=== PATIENT | female | born 1960 | race Caucasian/White ===

== ENCOUNTER 2019-05-16 07:15 | Emergency (ER) | payer OTHER ==
[~2019-05-16] VITALS: Ht 165.1 cm; Wt 81.7 kg
[~2019-05-16 07:15] MED LIST: BUTASPCAFT; CYCL10; CYCL10 PO; DULO30; FLUO10; IBUP600; LISI5; METH5; OMEP20ER; OXYC5; OXYC5 PO; PENVK500 PO; PROM25 PO; RANI150; SENN187; TEGA6
[2019-05-16] MEDS ORDERED: LISI20 PO (07:35)
[2019-05-16] MEDS ORDERED: DILT120ERA PO (07:35)
[2019-05-16 07:42] LABS: BASOPHILS ABSOLUTE AUTO 0.05 K/mm3 (0.00-0.23); BASOPHILS PERCENT AUTO 1 % (0-2); EOSINOPHILS ABSOLUTE AUTO 0.39 K/mm3 (0.00-0.68); EOSINOPHILS PERCENT AUTO 5 % (0-6); Hematocrit 41.7 % (33.0-51.0); Hemoglobin 13.9 g/dL (11.5-16.0); IMMATURE GRAN ABSOLUTE AUTO 0.03 K/mm3 (0.00-0.10); IMMATURE GRAN PERCENT AUTO 0 % (0-1); LYMPHOCYTES PERCENT AUTO 17 % (21-46); MONOCYTES ABSOLUTE AUTO 0.45 K/mm3 (0.16-1.47); MONOCYTES PERCENT AUTO 5 % (4-13); Mean Corpuscular HGB Conc 33.3 g/dL (31.5-36.5); Mean Corpuscular Volume 90 fL (80-100); Mean Platelet Volume 11.3 fL (9.1-12.4); NEUTROPHILS ABSOLUTE AUTO 6.14 K/mm3 (1.96-9.15); NEUTROPHILS PERCENT AUTO 73 % (41-73); Platelet Count 250 K/mm3 (150-400); RDW Coefficient Variation 12.5 % (11.7-14.2); RDW Standard Deviation 41.4 fL (35.1-46.3); Red Blood Cell Count 4.63 M/mm3 (3.80-5.20); White Blood Cell Count 8.46 K/mm3 (4.00-11.30)
[2019-05-16 08:09] LABS: Alanine Aminotransfer (ALT/SGP 24 U/L (12-78); Albumin, Blood 3.8 g/dL (3.4-5.0); Albumin/Globulin Ratio 1.1 (0.8-1.8); Alk Phos 80 U/L (50-136); Anion Gap 3 mmol/L (6-16); Aspartate Aminotrans (AST/SGOT 17 U/L (12-37); Bilirubin, Total 0.3 mg/dL (0.1-1.0); Blood Urea Nitrogen 17 mg/dL (8-24); Bun/Creatinine Ratio 19.7 (12.0-20.0); CO2, Blood 28 mmol/L (21-32); Calcium, Blood 8.8 mg/dL (8.5-10.1); Chloride, Blood 111 mmol/L (98-108); Creatinine, Blood 0.87 mg/dL (0.40-1.00); Globulin, Blood 3.4 g/dL (2.2-4.0); Glomerular Filtration Rate >60 (60-); Glucose, Blood 104 mg/dL (70-99); Potassium, Blood 3.9 mmol/L (3.5-5.5); Sodium, Blood 142 mmol/L (136-145); Total Protein, Blood 7.2 g/dL (6.4-8.2)
[2019-05-16] MEDS ORDERED: MOTION RELIEF25 MG PO (09:33)
== END 2019-05-16 09:54 | disposition home or self-care (01) ==
LOC: ER 07:15
PROVIDERS: Emergency Medicine
DX: R42 Dizziness and giddiness (principal); I10 Essential (primary) hypertension; Z87.891 Personal history of nicotine dependence; Z88.8 Allergy status to other drugs, medicaments and biological substances; Z79.899 Other long term (current) drug therapy
CPT/HCPCS: 36415; 80053; 84484; 85025; 93005; 93010; 96374; 99284-25; J2550

== ENCOUNTER → 2022-06-13 | Outpatient (CLI) | payer OTHER ==
[~2022-06-13] MED LIST changes: +DILT120ERA PO; +LISI20 PO; +MOTION RELIEF25 MG PO
[2022-06-13 16:08] LABS: Creatinine Urine 91.1 mg/dL (27.00-270.00); Protein, Urine Quantitative 21.7 mg/dL (0.0-11.9)
== END | disposition home or self-care (01) ==
LOC: LAB 13:59 → LAB SHORT 13:59 → LAB FUT 06-08 13:45
PROVIDERS: Internal Medicine Nephrology
DX: N18.30 Chronic kidney disease, stage 3 unspecified (principal); D63.1 Anemia in chronic kidney disease; N25.81 Secondary hyperparathyroidism of renal origin; E78.00 Pure hypercholesterolemia, unspecified; R76.9 Abnormal immunological finding in serum, unspecified; R94.5 Abnormal results of liver function studies; G60.9 Hereditary and idiopathic neuropathy, unspecified
CPT/HCPCS: 81050; 82043; 82570; 84156

== ENCOUNTER 2022-08-09 15:38 | Emergency (ER) | payer OTHER ==
[~2022-08-09] VITALS: Ht 167.6 cm; Wt 81.7 kg
[2022-08-09 17:14] LABS: BASOPHILS ABSOLUTE AUTO 0.06 K/mm3 (0.00-0.23); BASOPHILS PERCENT AUTO 1 % (0-2); EOSINOPHILS ABSOLUTE AUTO 0.33 K/mm3 (0.00-0.68); EOSINOPHILS PERCENT AUTO 5 % (0-6); Hemoglobin 13.3 g/dL (11.5-16.0); IMMATURE GRAN ABSOLUTE AUTO 0.02 K/mm3 (0.00-0.10); IMMATURE GRAN PERCENT AUTO 0 % (0-1); LYMPHOCYTES ABSOLUTE AUTO 2.69 K/mm3 (0.84-5.20); LYMPHOCYTES PERCENT AUTO 38 % (21-46); MONOCYTES ABSOLUTE AUTO 0.42 K/mm3 (0.16-1.47); MONOCYTES PERCENT AUTO 6 % (4-13); Mean Corpuscular HGB 29.8 pg (26.0-34.0); Mean Corpuscular HGB Conc 33.3 g/dL (31.5-36.5); Mean Corpuscular Volume 90 fL (80-100); Mean Platelet Volume 11.4 fL (9.1-12.4); NEUTROPHILS ABSOLUTE AUTO 3.48 K/mm3 (1.96-9.15); NEUTROPHILS PERCENT AUTO 50 % (41-73); Platelet Count 220 K/mm3 (150-400); RDW Coefficient Variation 12.4 % (11.7-14.2); RDW Standard Deviation 40.8 fL (35.1-46.3); Red Blood Cell Count 4.47 M/mm3 (3.80-5.20)
[2022-08-09] MEDS ORDERED: TAMSULOSIN HCL0.4 MG PO (17:26)
[2022-08-09] MEDS ORDERED: CATAPRES0.1 MG PO (17:26)
[2022-08-09 17:42] LABS: Albumin, Blood 3.8 g/dL (3.4-5.0); Albumin/Globulin Ratio 1.2 (0.8-1.8); Bilirubin, Total 0.4 mg/dL (0.1-1.0); Bun/Creatinine Ratio 15.9 (12.0-20.0); Calcium, Blood 8.9 mg/dL (8.5-10.1); Creatinine, Blood 0.94 mg/dL (0.40-1.00); Globulin, Blood 3.1 g/dL (2.2-4.0); Total Protein, Blood 6.9 g/dL (6.4-8.2)
[2022-08-09 18:34] LABS: Influenza A, PCR NEGATIVE (NEGATIVE); Influenza B, PCR NEGATIVE (NEGATIVE); Resp Syncytial Virus, PCR NEGATIVE (NEGATIVE); SARS-Cov-2 (COVID-19) PCR, MMC NEGATIVE (NEGATIVE)
== END 2022-08-09 18:58 | disposition home or self-care (01) ==
LOC: ER 15:38
PROVIDERS: Emergency Medicine
DX: R07.89 Other chest pain (principal); I25.10 Atherosclerotic heart disease of native coronary artery without angina pectoris; Z87.891 Personal history of nicotine dependence; Z20.822 Contact with and (suspected) exposure to COVID-19
CPT/HCPCS: 0241U; 71045; 80053; 83690; 83880; 84484; 85025; 93005; 93010; 99285-25

== ENCOUNTER 2023-05-02 05:51 | Emergency (ER) | payer OTHER ==
[~2023-05-02] VITALS: Ht 165.1 cm; Wt 81.7 kg
[~2023-05-02 05:51] MED LIST changes: +CATAPRES0.1 MG PO; +TAMSULOSIN HCL0.4 MG PO
[2023-05-02 07:58] LABS: BASOPHILS ABSOLUTE AUTO 0.05 K/mm3 (0.00-0.23); BASOPHILS PERCENT AUTO 1 % (0-2); EOSINOPHILS PERCENT AUTO 2 % (0-6); Hemoglobin 16.2 g/dL (11.5-16.0); IMMATURE GRAN ABSOLUTE AUTO 0.01 K/mm3 (0.00-0.10); IMMATURE GRAN PERCENT AUTO 0 % (0-1); LYMPHOCYTES ABSOLUTE AUTO 1.86 K/mm3 (0.84-5.20); LYMPHOCYTES PERCENT AUTO 23 % (21-46); MONOCYTES PERCENT AUTO 6 % (4-13); Mean Corpuscular HGB 30.1 pg (26.0-34.0); Mean Corpuscular HGB Conc 34.5 g/dL (31.5-36.5); Mean Corpuscular Volume 87 fL (80-100); Mean Platelet Volume 11.7 fL (9.1-12.4); NEUTROPHILS ABSOLUTE AUTO 5.64 K/mm3 (1.96-9.15); NEUTROPHILS PERCENT AUTO 68 % (41-73); Platelet Count 247 K/mm3 (150-400); RDW Coefficient Variation 12.4 % (11.7-14.2); RDW Standard Deviation 39.6 fL (35.1-46.3); Red Blood Cell Count 5.38 M/mm3 (3.80-5.20); White Blood Cell Count 8.26 K/mm3 (4.00-11.30)
[2023-05-02 08:21] LABS: Albumin/Globulin Ratio 1.2 (0.8-1.8); Bilirubin, Total 0.5 mg/dL (0.1-1.0); Bun/Creatinine Ratio 13.5 (12.0-20.0); Calcium, Blood 9.3 mg/dL (8.5-10.1); Creatinine, Blood 0.89 mg/dL (0.40-1.00); Globulin, Blood 3.3 g/dL (2.2-4.0); Potassium, Blood 3.8 mmol/L (3.5-5.5); Total Protein, Blood 7.3 g/dL (6.4-8.2)
[2023-05-02] MEDS ORDERED: CATAPRES0.1 MG PO (10:00)
[2023-05-02 10:30] VITALS: BP 182/81
== END 2023-05-02 10:40 | disposition home or self-care (01) ==
LOC: ER 05:51
PROVIDERS: Emergency Medicine
DX: I16.0 Hypertensive urgency (principal); R07.89 Other chest pain; R51.9 Headache, unspecified; I10 Essential (primary) hypertension; Z87.891 Personal history of nicotine dependence; Z79.899 Other long term (current) drug therapy; Z88.8 Allergy status to other drugs, medicaments and biological substances
CPT/HCPCS: 71045; 80053; 84484; 85025; 93005; 93010; 96374; 99285-25; A9270; J2405

== ENCOUNTER 2024-06-18 14:28 | Observation (INO) | payer OTHER ==
[~2024-06-18] VITALS: Ht 165.1 cm; Wt 84.5 kg
[~2024-06-18 14:28] MED LIST changes: +OXAYDO5 M1 PO
[2024-06-18 15:19] LABS: BASOPHILS ABSOLUTE AUTO 0.03 K/mm3 (0.00-0.23); BASOPHILS PERCENT AUTO 1 % (0-2); EOSINOPHILS ABSOLUTE AUTO 0.17 K/mm3 (0.00-0.68); EOSINOPHILS PERCENT AUTO 3 % (0-6); Hematocrit 41.1 % (33.0-51.0); Hemoglobin 14.1 g/dL (11.5-16.0); IMMATURE GRAN ABSOLUTE AUTO 0.01 K/mm3 (0.00-0.10); IMMATURE GRAN PERCENT AUTO 0 % (0-1); LYMPHOCYTES ABSOLUTE AUTO 2.34 K/mm3 (0.84-5.20); LYMPHOCYTES PERCENT AUTO 45 % (21-46); MONOCYTES ABSOLUTE AUTO 0.46 K/mm3 (0.16-1.47); MONOCYTES PERCENT AUTO 9 % (4-13); Mean Corpuscular HGB 30.2 pg (26.0-34.0); Mean Corpuscular HGB Conc 34.3 g/dL (31.5-36.5); Mean Corpuscular Volume 88 fL (80-100); Mean Platelet Volume 11.3 fL (9.1-12.4); NEUTROPHILS PERCENT AUTO 42 % (41-73); Platelet Count 215 K/mm3 (150-400); RDW Coefficient Variation 12.4 % (11.7-14.2); RDW Standard Deviation 39.3 fL (35.1-46.3); Red Blood Cell Count 4.67 M/mm3 (3.80-5.20); White Blood Cell Count 5.21 K/mm3 (4.00-11.30)
[2024-06-18] MEDS ORDERED: DOXA4 PO (15:31)
[2024-06-18] MEDS ORDERED: CYCL10 PO (15:31)
[2024-06-18] MEDS ORDERED: DILT60 PO (15:31)
[2024-06-18] MEDS ORDERED: Aspir 8181 MG PO (15:32)
[2024-06-18] MEDS ORDERED: SENN187 PO (15:32)
[2024-06-18] MEDS ORDERED: LACT PO (15:32)
[2024-06-18] MEDS ORDERED: ROPI.25 PO (15:32)
[2024-06-18 15:44] LABS: Albumin, Blood 3.6 g/dL (3.4-5.0); Bilirubin, Total 0.3 mg/dL (0.1-1.0); Bun/Creatinine Ratio 18.7 (12.0-20.0); Calcium, Blood 8.7 mg/dL (8.5-10.1); Creatinine, Blood 0.96 mg/dL (0.40-1.00); Globulin, Blood 3.7 g/dL (2.2-4.0); Potassium, Blood 3.8 mmol/L (3.5-5.5); Total Protein, Blood 7.3 g/dL (6.4-8.2)
[2024-06-18] MEDS ORDERED: Aspirin 325 MG Tab PO ONE (15:55)
[2024-06-18 16:28] LABS: CHOL/HDL RATIO 3.5; Cholesterol 220 mg/dL (50-200); HDL Cholesterol 62 mg/dL (>39); LDL/HDL RATIO 2.3; Low Density Lipoprotein Chol 143 mg/dL (0-110); Triglycerides 77 mg/dL (30-160); Very Low Density Lipoprot Chol 15 mg/dL (6-32)
[2024-06-18] MEDS ORDERED: FLU VACC TS2024-25(6MOS UP)/PF 45 MCG/0.5 ML SYRINGE IM ONE (20:00)
--- NOTE | 2024-06-18 20:09 | NUR ---
NEW ADMIT. PATIENT ADMITTED TO ROOM 325 FROM THE ER FOR CHEST PAIN. PATIENT ARRIVED TO ROOM VIA WHEELCHAIR AND 1P TRANSFER. PATIENT IS ABLE TO SELF AMBULATE TO BED WITH STEADY GAIT. PATIENTS SON AT SIDE WHEN ARRIVED TO ROOM-SON TOOK PERSONAL BELONGINGS HOME. THIS RN TO ASSUME PATIENT CARE.
[2024-06-18] MEDS ORDERED: NIACIN PO (20:21)
[2024-06-18 20:47] VITALS: BP 176/79
[2024-06-18] MEDS ORDERED: rOPINIRole HCl 0.25 MG Tab PO SCH (21:00)
[2024-06-18] MEDS ORDERED: Doxazosin Mesylate 2 MG Tab PO SCH (21:00)
[2024-06-18] MEDS ORDERED: NS 1,000 ML IV SCH (22:00)
--- NOTE | 2024-06-18 22:40 | NUR ---
DR.ANDREW SUTTON CONTACTED FOR CARDIOLOGY CONSULT. DR. SUTTON REPLIED WITH "THEY USUALLY JUST CALL IN THE MORNING". WILL REPORT TO DAYSHIFT NURSE TO CONTACT CARDIOLOGY FOR CONSULT.
[2024-06-19] VITALS (12 sets, daily range): BP systolic 137–193; BP diastolic 55–86
--- NOTE | 2024-06-19 05:21 | NUR ---
SHIFT SUMMARY. PATIENT IS A&OX4. PATIENT IS ABLE TO AMBULATE INDEPENDENTLY IN ROOM TO THE BATHROOM-PATIENT EDUCATED ON CALLING IF SHE HAS CHEST PAIN AND/OR IF SHE EXPERIENCES CHEST PAIN WHEN UP TO BATHROOM-PATIENT AGREEABLE. PATIENT CALLS APPROPRIATELY AND IS ABLE TO MAKE HER NEEDS KNOWN. TELE IS ON WITH LEADS IN PLACE-NO NOTED EVENTS THIS SHIFT. PATIENT IS ON A HEART HEALTHY DIET. BED IS LOCKED IN THE LOWEST POSITION WITH CALL LIGHT IN REACH. CARE IS ONGOING.
[2024-06-19] MEDS ORDERED: Spironolactone 25 MG Tab PO SCH (09:00)
[2024-06-19] MEDS ORDERED: Atorvastatin 40 MG Tab PO SCH ×2 (09:00)
[2024-06-19] MEDS ORDERED: Cyclobenzaprine HCl 10 MG Tab PO SCH (09:00)
[2024-06-19] MEDS ORDERED: Enoxaparin 40 MG/0.4 ML SYR SC SCH (09:00)
[2024-06-19] MEDS ORDERED: Aspirin 81 MG Chew PO SCH (09:00)
[2024-06-19] MEDS ORDERED: Lisinopril 20 MG Tab PO SCH (09:00)
[2024-06-19] MEDS ORDERED: Diltiazem HCl 300 MG Cap.CD PO SCH (09:00)
[2024-06-19] MEDS ORDERED: Sennosides 8.6 MG Tab PO SCH (09:00)
[2024-06-19] MEDS ORDERED: dilTIAZem HCL 60 MG TAB PO SCH (09:00)
[2024-06-19] MEDS ORDERED: Heparin Sodium 1000 Units/ML 10ML MDV ONE (12:59)
[2024-06-19] MEDS ORDERED: NiCARdipine HCL 1,000 MCG/5 ML SYR ONE (13:00)
[2024-06-19] MEDS ORDERED: NS 250 ML IV ONE (13:00)
[2024-06-19] MEDS ORDERED: Nitroglycerin 2 MG/20 ML BTL ONE (13:00)
[2024-06-19] MEDS ORDERED: NS 1,000 ML IV ONE ×2 (13:00→13:41)
[2024-06-19] MEDS ORDERED: Midazolam HCl 1MG / ML 2ML Vial ONE (13:41)
[2024-06-19] MEDS ORDERED: FentaNYL Citrate 50 MCG/ML 2 ML Injection ONE (13:41)
[2024-06-19] MEDS ORDERED: NS 1,000 ML IV SCH (14:30)
--- NOTE | 2024-06-19 15:12 | NUR ---
dr owen at bedside discussing procedure and plan of care.
--- NOTE | 2024-06-19 15:26 | NUR ---
2cc removed from tr band. site soft and non-tender per pt. no bleeding noted.
--- NOTE | 2024-06-19 16:20 | NUR ---
ARRIVAL FROM PAID SEARCH MARKETING STRATEGIST PT ARRIVED TO PCU FROM PAID SEARCH MARKETING STRATEGIST AROUND [id number]. PT BROUGHT BY WHEELCHAIR AND TANSFERED FROM CHAIR TO BED INDEPENDENTLY. RIGHT RADIAL SITE, TR BAND IN PLACE, NO BLEEDING, HEMATOMA OR BRUSING NOTED, ARM BOARD IN PLACE. PAID SEARCH MARKETING STRATEGIST RN STARTING DEFLATING TR BAND IN RECOVERY ROOM, WILL CONTINUE TO MONITOR SITE AND DELFLATE AIR. HR IN THE 60'S, SBP STABLE, DENIES CP/PRESSURE, NUMB/TINGLING. O2 >92% ON RA. WILL CONTINUE TO MONITOR PT.
[2024-06-19] MEDS ORDERED: ATOR40TA PO (18:11)
[2024-06-19] MEDS ORDERED: Aldactone25 MG PO (18:12)
[2024-06-19] MEDS ORDERED: PANT40 PO (18:12)
--- NOTE | 2024-06-19 18:47 | NUR ---
DISCHARGE SUMMARY NO ACUTE CHANGES T/O SHIFT. R PIV REMOVED, PRESSURE APPLIED, WRAPPED IN COBAN AND GUAZE. DISCHARGE INSTRUCTIONS REVIEWED WITH PT. RIGHT RADIAL SITE COVERD WITH CLEAR TEGADERM, SITE INTACT, NO BLEEDING, BRUISING, OR HEMATOMA NOTED. PT LEFT VIA WHEELCHAIR AT 1845 WITH RN.
[2024-06-20] MEDS ORDERED: Atorvastatin 40 MG Tab PO SCH (21:00)
== END 2024-06-19 19:07 | disposition home or self-care (01) ==
LOC: ER 14:28 → MEDS 14:29 → PCU 06-19 14:35
PROVIDERS: Emergency Medicine; ADMIT Family Medicine
DX: I25.110 Atherosclerotic heart disease of native coronary artery with unstable angina pectoris (principal); I10 Essential (primary) hypertension; E78.5 Hyperlipidemia, unspecified; G25.81 Restless legs syndrome; Z79.82 Long term (current) use of aspirin; Z79.899 Other long term (current) drug therapy; Z87.891 Personal history of nicotine dependence; Z88.5 Allergy status to narcotic agent; Z88.8 Allergy status to other drugs, medicaments and biological substances
CPT/HCPCS: 36415; 71045; 76937; 80053; 80061; 84484; 85025; 93005; 93010; 93308; 93321; 93458; 99152; 99153; 99285-25; A9270; C1769; C1894; G0378; J1644; J2250; J3010; J7030; J7050; Q9967